=== PATIENT | male | born 1965 | race Caucasian/White ===

== ENCOUNTER 2019-03-27 14:09 | Inpatient (IN) | payer BC ==
[~2019-03-27] VITALS: Ht 181.6 cm; Wt 96.2 kg
[2019-03-27 14:21] VITALS: BP 168/102
--- NOTE | 2019-03-27 14:26 | NUR ---
PT AMB TO CHAIR UNTIL ER BED OPENS
--- NOTE | 2019-03-27 14:31 | NUR ---
PT AMB TO BED 2 WITH STEADY GAIT
--- NOTE | 2019-03-27 14:37 | NUR ---
C/O WEAKNESS, HEADACHES AND CP RADIATING TO THE L ARM AND L JAW 04/01 AND ACHING X 1 WEEK. PT REPORTS SEEING HIS PCP ON SATURDAY REGARDING THE SYMPTOMS AND WAS TOLD HIS EKG THAT WAS PERFORMED IN THE OFFICE WAS NORMAL. DENIES SOB, COUGH OR N/V. SKIN IS DRY/WARM/NFE. PT ALERT AND SPEAKING IN CLEAR/COMPLETE SENTENCES. BED IN LOW POSITION, SIDE RAIL UP X1. PT PLACED ON STUDENT LIFE COORDINATOR AT THIS TIME.
--- NOTE | 2019-03-27 14:38 | NUR ---
PT PLACED ON CLAIMS ADMINISTRATOR. LALIT EMT AT BEDSIDE FOR EKG
--- NOTE | 2019-03-27 14:41 | NUR ---
Dr. Barnhart evaluating patient at bedside.
[2019-03-27 15:05] LABS: BASOPHILS % (AUTO) 0.7 % (0.0-2.0); EOSINOPHILS # (AUTO) 0.1 K/uL (0-0.4); EOSINOPHILS % (AUTO) 1.9 % (0.0-4.0); HEMATOCRIT 43.1 % (36-52); HEMOGLOBIN 14.5 g/dL (12.0-18.0); LYMPHOCYTES # (AUTO) 1.9 K/uL (2.0-11.5); LYMPHOCYTES % (AUTO) 30.7 % (20.5-51.1); MEAN CORPUSCULAR HEMOGLOBIN 30 pg (27-31); MEAN CORPUSCULAR HGB CONC 34 g/dL (33-37); MEAN CORPUSCULAR VOLUME 88.3 fL (80-94); MONOCYTES # (AUTO) 0.4 K/uL (0.8-1.0); MONOCYTES % (AUTO) 6.1 % (1.7-9.3); NEUTROPHILS # (AUTO) 3.7 K/uL (1.8-7.7); NEUTROPHILS % (AUTO) 60.6 % (42.2-75.2); PLATELET COUNT (AUTO) 259 K/uL (140-450); RED BLOOD CELL COUNT(AUTO) 4.88 MIL/uL (4.20-6.10); WHITE BLOOD COUNT (AUTO) 6.1 K/uL (4.8-10.8)
[2019-03-27 15:14] LABS: ANION GAP 13.5 (8-16); CARBON DIOXIDE 28.2 mmol/L (21-32); POTASSIUM 3.7 mmol/L (3.5-5.1)
[2019-03-27] MEDS ORDERED: ASPIRIN 81 MG TAB.CHEW PO ONE (15:15)
[2019-03-27 15:22] LABS: ALBUMIN 3.8 g/dL (3.4-5.0); TOTAL BILIRUBIN 0.3 mg/dL (0.0-1.0)
[2019-03-27 15:38] LABS: PROTHROMBIN TIME 9.6 secs (10.8-13.4)
[2019-03-27] MEDS ORDERED: DOCUSATE SODIUM 100 MG GELCAP PO PRN (15:50)
[2019-03-27] MEDS ORDERED: ONDANSETRON 4 MG/2 ML VIAL IM/IVP PRN (15:50)
[2019-03-27] MEDS ORDERED: ACETAMINOPHEN 325 MG TAB PO PRN (15:50)
[2019-03-27] MEDS ORDERED: LORazepam 2 MG/ML VIAL IM/IVP PRN (15:50)
[2019-03-27] MEDS ORDERED: HYDROcodone/APAP 5/325 MG 1 TAB TAB PO PRN (15:50)
[2019-03-27] MEDS ORDERED: MORPHINE SULFATE 2 MG/ML SYR IVP PRN (15:50)
[2019-03-27 16:25] VITALS: BP 151/93
[2019-03-27 16:25] LABS: MAGNESIUM 1.9 mg/dL (1.8-2.4); PHOSPHORUS 4.5 mg/dL (2.5-4.9); THYROID STIMULATING HORMONE 2.4 uIU/mL (0.34-3.74)
--- NOTE | 2019-03-27 16:25 | NUR ---
RECEIVED PT FROM [facility] RAFAELA FLOWER, PT IS AWAKE AND ALERT AND AMBULATED TO THE BED, IV LINE ON THE LEFT AC G.18 ON SALINE LOCK,AOX4, VITAL SIGNS TAKEN AND BP IS 151/93, PULSE IS 77, TEMP. IS 97.7, O2 SATURATION IS 96% AND RESPIRATION IS EVEN. PT VERBALIZED A CHEST PAIN OF 5/10 ON THE LEFT SIDE. NO OTHER UNTOWARD SYMPTOM NOTED. WILL CONTINUE TO MONITOR PT.
--- NOTE | 2019-03-27 16:30 | NUR ---
MRSA SWAB DONE TO PT NOW AND SAMPLE SENT TO LAB.
--- NOTE | 2019-03-27 16:30 | NUR ---
Patient will be admitted to care of DR. GONZALEZ. Admited to TELEMETRY. Will go to room 120B. Belongings list completed. Report to DAJA SHEARER.
[2019-03-27] MEDS ORDERED: DEXTROSE 50% 50 ML SYR IVP PRN (16:45)
[2019-03-27] MEDS ORDERED: hydrALAZINE 20 MG/ML VIAL IVP PRN (16:45)
[2019-03-27] MEDS ORDERED: INSULIN LISPRO SLIDING SCALE 100 UNITS/ML VIAL SUBQ PRN (16:45)
[2019-03-27] MEDS ORDERED: NITROGLYCERIN 0.4 MG TAB SL PRN (16:45)
[2019-03-27] MEDS: NACL 0.9% 1,000 ML IV SCH (17:27)
--- NOTE | 2019-03-27 17:30 | NUR ---
PT WAS STARTED WITH NS AT 60NML/HR NOW, ULTRASOUND OF THE BILATERAL CAROTID BEING DONE TO PT NOW.
--- NOTE | 2019-03-27 18:32 | NUR ---
PT JUST FINISHED HIS DINNER NOW AND DENIES PAIN. WILL MONITOR PT.
--- NOTE | 2019-03-27 19:15 | NUR ---
ENDORSED PT TO DIVER HELPER NURSE FOR CONTINUITY OF CARE.
--- NOTE | 2019-03-27 19:15 | NUR ---
RECEIVED PATIENT AND REPORT FOR CONTINUITY OF CARE. PATIENT IS AWAKE, ALERT, ORIENTED, WITH FAMILY MEMBERS AT BEDSIDE. PATIENT IS ON ROOM AIR. IV SITE IS ON LEFT AC 18 GA WITH NORMAL SALINE RUNNING AT 60 ML/HR. PATIENT IS AMBULATORY, SKIN IS INTACT. PATIENT DENIES ANY PAIN AT THIS TIME. WILL MONITOR PATIENT THROUGHOUT SHIFT.
[2019-03-27 20:00] VITALS: BP 144/89
[2019-03-27] MEDS: BLOOD GLUCOSE MONITORING 1 DEV DEV FS SCH (21:00)
[2019-03-27] MEDS: METOPROLOL 25 MG TAB PO SCH (22:04)
[2019-03-27] MEDS: busPIRone 5 MG TAB PO SCH (22:04)
--- NOTE | 2019-03-27 22:04 | NUR ---
ADMINISTERED MEDICATIONS ORDERED. PATIENT REFUSED HEPARIN SUBQ. PATIENT TOLERATED MEDICATIONS WELL. WILL CONTINUE TO MONITOR PATIENT.
[2019-03-28] VITALS (7 sets, daily range): BP systolic 136–156; BP diastolic 72–94
--- NOTE | 2019-03-28 | NUR ---
VITAL SIGNS TAKEN AND CHARTED. PATIENT LYING DOWN, ASLEEP. PATIENT DENIES ANY PAIN AT THIS TIME. WILL CONTINUE TO MONITOR PATIENT.
--- NOTE | 2019-03-28 02:00 | NUR ---
MADE ROUNDS. PATIENT LYING DOWN, APPEARS TO BE ASLEEP WITH NO SIGNS OF DISTRESS. WILL CONTINUE TO MONITOR PATIENT.
--- NOTE | 2019-03-28 04:00 | NUR ---
VITAL SIGNS TAKEN AND CHARTED. PATIENT DENIES PAIN AT THIS TIME. INFORMED URINE SPECIMEN NEEDED. WILL CONTINUE TO MONITOR PATIENT.
[2019-03-28] MEDS: BLOOD GLUCOSE MONITORING 1 DEV DEV FS SCH ×4 (05:38→21:23)
--- NOTE | 2019-03-28 06:00 | NUR ---
TAKEN BLOOD SUGAR, AND CHARTED. RESULT IS 92, NO COVERAGE NEEDED.
--- NOTE | 2019-03-28 07:29 | NUR ---
RECEIVED BEDSIDE REPORT FROM DAJA MILIAN. PT STABLE, AWAKE, ALERT AND ORIENTED X4. NO SIGNS OF DISTRESS NOTED. DENIES PAIN OR SOB. NO REDNESS, SWELLING, OR INFLAMMATION NOTED ON IV SITE. CALL BROWN WITHIN REACH. BED IN LOWEST POSITION. SAFETY MEASURES IN PLACE. PLAN OF CARE REVIEWED.
--- NOTE | 2019-03-28 07:30 | NUR ---
ENDORSED PATIENT TO AM SHIFT NURSE FOR CONTINUITY OF CARE. PATIENT IS AWAKE, LYING DOWN IN BED, WATCHING TV. PATIENT IS IN STABLE CONDITION AT THIS TIME.
[2019-03-28] MEDS: NACL 0.9% 1,000 ML IV SCH ×2 (07:43→13:34)
--- NOTE | 2019-03-28 08:48 | NUR ---
URINE SAMPLE COLLECTED PER MD ORDER.
[2019-03-28 08:56] LABS: BASOPHILS % (AUTO) 0.6 % (0.0-2.0); EOSINOPHILS # (AUTO) 0.1 K/uL (0-0.4); EOSINOPHILS % (AUTO) 2.9 % (0.0-4.0); HEMATOCRIT 41.9 % (36-52); LYMPHOCYTES # (AUTO) 1.6 K/uL (2.0-11.5); LYMPHOCYTES % (AUTO) 31.7 % (20.5-51.1); MEAN CORPUSCULAR HEMOGLOBIN 30 pg (27-31); MEAN CORPUSCULAR HGB CONC 33 g/dL (33-37); MEAN CORPUSCULAR VOLUME 89.1 fL (80-94); MONOCYTES # (AUTO) 0.4 K/uL (0.8-1.0); MONOCYTES % (AUTO) 7.9 % (1.7-9.3); NEUTROPHILS # (AUTO) 2.8 K/uL (1.8-7.7); NEUTROPHILS % (AUTO) 56.9 % (42.2-75.2); PLATELET COUNT (AUTO) 246 K/uL (140-450); RED CELL DISTRIBUTION WIDTH 14.3 % (11.6-13.7); WHITE BLOOD COUNT (AUTO) 4.9 K/uL (4.8-10.8)
[2019-03-28] MEDS ORDERED: PANTOPRAZOLE 40 MG TABEC PO SCH (09:00)
[2019-03-28] MEDS ORDERED: LISINOPRIL 5 MG TAB PO SCH (09:00)
[2019-03-28 09:22] LABS: CHOL/HDL RATIO 4.6 (1-4.5); MAGNESIUM 2.1 mg/dL (1.8-2.4); PHOSPHORUS 3.3 mg/dL (2.5-4.9)
[2019-03-28] MEDS: ATORVASTATIN 20 MG TAB PO SCH (09:37)
[2019-03-28] MEDS: METOPROLOL 25 MG TAB PO SCH ×2 (09:37→21:24)
[2019-03-28] MEDS: ASPIRIN 81 MG TAB.CHEW PO SCH (09:37)
[2019-03-28 09:38] LABS: APPEARANCE,URINE CLEAR (CLEAR); BILIRUBIN,URINE NEGATIVE (NEGATIVE); BLOOD, URINE NEGATIVE (NEGATIVE); COLOR,URINE YELLOW (YELLOW); LEUKOCYTE ESTERASE ,URINE NEGATIVE (NEGATIVE); NITRITE, URINE NEGATIVE (NEGATIVE); UGLUCOSE TRACE (NEGATIVE)
[2019-03-28] MEDS: busPIRone 5 MG TAB PO SCH ×2 (09:38→21:24)
--- NOTE | 2019-03-28 09:41 | NUR ---
DR MEZA AT THE BEDSIDE. PT REFUSED SCHEDULED HEPARIN, PT IS AMBULATORY AND HAS SCDS ON. ADMINISTERED ALL OTHER SCHEDULED MEDICATIONS, PT TOLERATED WELL. NO OTHER NEEDS AT THIS TIME.
[2019-03-28 10:07] LABS: ANION GAP 13.5 (8-16); CARBON DIOXIDE 25.6 mmol/L (21-32); CREATININE 0.9 mg/dL (0.7-1.3); POTASSIUM 4.1 mmol/L (3.5-5.1)
--- NOTE | 2019-03-28 11:48 | NUR ---
VITAL SIGNS TAKEN, PT STABLE. BLOOD GLUCOSE CHECKED, 90, NO COVERAGE NEEDED. FAMILY AT THE BEDSIDE.
--- NOTE | 2019-03-28 13:20 | NUR ---
PT STABLE, RESTING IN BED. NO OTHER NEEDS AT THIS TIME.
--- NOTE | 2019-03-28 15:52 | NUR ---
VITAL SIGNS TAKEN, PT STABLE. NO OTHER NEEDS AT THIS TIME.
--- NOTE | 2019-03-28 16:30 | NUR ---
BLOOD GLUCOSE CHECKED, 84, NO COVERAGE NEEDED.
--- NOTE | 2019-03-28 18:45 | NUR ---
PT STABLE, DENIES PAIN OR SOB. AT THE BEDSIDE. NO OTHER NEEDS AT THIS TIME.
--- NOTE | 2019-03-28 19:25 | NUR ---
ENDORSED PT TO RN JASMINE FOR CONTINUITY OF CARE. PT STABLE.
--- NOTE | 2019-03-28 19:26 | NUR ---
RECEIVED PT IN STABLE CONDITION FROM PR NURSE. AWAKE,ALERT NAD ORIENTED X4. ON TEL MONITOR . WITH NO C/O ANY PAIN NO0R DISCOMFORT NOTED. FAMILY MEMBER AT BEDSIDE. HAS IVF INFUSING WELL IN THE LT AC G#18. CLEAR AND PATENT. PLAN OF CARE DISCUSSED AND VERBALIZED UNDERSTANDING. BED ON LOW POSITION. CALL LIGHT WITHIN EASY REACH. WILL CONTINUE TO MONITOR.
--- NOTE | 2019-03-28 19:50 | NUR ---
PT AMBULATED TO THE HALLWAY WITH FAMILY. NO CHEST PAIN NOTED.
--- NOTE | 2019-03-28 21:23 | NUR ---
BLOOD SUGAR WAS CHECKED RESULT 96. NO INSULIN NEEDED.
--- NOTE | 2019-03-28 23:50 | NUR ---
MADE ROUNDS. AWAKE , NO C/O ANY DISCOMFORT NOR PAIN NOTED. VITAL SIGNS STABLE.
--- NOTE | 2019-03-29 01:00 | NUR ---
MADE ROUNDS. PT ASLEEP. NO S/S OF ANY DISCOMFORT NOTED.
--- NOTE | 2019-03-29 03:00 | NUR ---
ASLEEP. NO S/S OF ANY PAIN . WILL CONTINUE TO MONITOR.
[2019-03-29 04:00] VITALS: BP 130/85
--- NOTE | 2019-03-29 06:00 | NUR ---
BLOOD SUGAR THIS AM WAS CHECKED RESULT 91. NO INSULIN NEEDED.
[2019-03-29] MEDS: BLOOD GLUCOSE MONITORING 1 DEV DEV FS SCH (06:01)
--- NOTE | 2019-03-29 06:10 | NUR ---
PATIENT HAS BEEN SCREENED AND CATEGORIZED MODERATE NUTRITION RISK. PATIENT WILL BE SEEN WITHIN 3-5 DAYS OF ADMISSION. 03/30/19-04/01/19 DOC BISHOP MS, RDN
--- NOTE | 2019-03-29 07:10 | NUR ---
ENDORSED PT IN STABLE CONDITION TO AM NURSE.
--- NOTE | 2019-03-29 07:38 | NUR ---
PATIENT WAS AWAKE, ALERT, SITTING IN BED COMFORTABLY. RESPIRATION EVEN, UNLABOR ON ROOM AIR. SKIN DRY AND WARM. IV PATENT AND INTACT. DENIED CHEST PAIN, SOB AT THIS TIME. PLAN OF CARE WAS DISCUSSED WITH PATIENT. BED AT LOW POSITION, SIDE RAILS UP. CALL LIGHT WITHIN REACH
[2019-03-29 08:00] VITALS: BP 127/85
[2019-03-29] MEDS ORDERED: ATOR10TA PO (08:06)
[2019-03-29] MEDS ORDERED: METO25TE2 PO (08:06)
[2019-03-29] MEDS ORDERED: LISI10TA11 PO (08:06)
[2019-03-29 08:16] LABS: BASOPHILS % (AUTO) 0.7 % (0.0-2.0); EOSINOPHILS # (AUTO) 0.1 K/uL (0-0.4); EOSINOPHILS % (AUTO) 2.7 % (0.0-4.0); HEMATOCRIT 43.9 % (36-52); HEMOGLOBIN 14.8 g/dL (12.0-18.0); LYMPHOCYTES # (AUTO) 1.6 K/uL (2.0-11.5); LYMPHOCYTES % (AUTO) 30.5 % (20.5-51.1); MEAN CORPUSCULAR HEMOGLOBIN 30 pg (27-31); MEAN CORPUSCULAR HGB CONC 34 g/dL (33-37); MEAN CORPUSCULAR VOLUME 88.3 fL (80-94); MONOCYTES # (AUTO) 0.3 K/uL (0.8-1.0); MONOCYTES % (AUTO) 5.8 % (1.7-9.3); NEUTROPHILS # (AUTO) 3.2 K/uL (1.8-7.7); NEUTROPHILS % (AUTO) 60.3 % (42.2-75.2); PLATELET COUNT (AUTO) 261 K/uL (140-450); RED BLOOD CELL COUNT(AUTO) 4.97 MIL/uL (4.20-6.10); RED CELL DISTRIBUTION WIDTH 14.1 % (11.6-13.7); WHITE BLOOD COUNT (AUTO) 5.2 K/uL (4.8-10.8)
[2019-03-29] MEDS: NACL 0.9% 1,000 ML IV SCH (08:30)
[2019-03-29] MEDS: ATORVASTATIN 20 MG TAB PO SCH (08:36)
[2019-03-29] MEDS: METOPROLOL 25 MG TAB PO SCH (08:36)
[2019-03-29] MEDS: busPIRone 5 MG TAB PO SCH (08:36)
[2019-03-29] MEDS: ASPIRIN 81 MG TAB.CHEW PO SCH (08:37)
[2019-03-29] MEDS ORDERED: LISINOPRIL 20 MG TAB PO SCH (09:00)
[2019-03-29 09:17] LABS: ANION GAP 15.2 (8-16); CARBON DIOXIDE 25.7 mmol/L (21-32); POTASSIUM 3.9 mmol/L (3.5-5.1)
[2019-03-29 09:18] LABS: MAGNESIUM 2.2 mg/dL (1.8-2.4); PHOSPHORUS 3.6 mg/dL (2.5-4.9)
--- NOTE | 2019-03-29 09:18 | NUR ---
DISCHARGE INSTRUCTION AND PRESCRIPTIONS WERE GIVEN AND EXPLAINED TO PATIENT. PATIENT VERBALIZED UNDERSTANDING. IV WAS REMOVED, CATHETER INTACT, NO ACTIVE BLEEDING SEEN. LIVESTOCK YARD SUPERVISOR WAS REMOVED. PATIENT REFUSED TO HAVE PNEUMO VACCINE AT THIS TIME.
--- NOTE | 2019-03-29 09:30 | NUR ---
PATIENT WAS ESCORTED OUT BY STAFF, AMBULATORY WITH STEADY GAIT. ALL BELONGINGS WERE TAKEN WITH THE PATIENT. ID BAND WAS REMOVED. PATIENT IS STABLE AT THIS TIME
== END 2019-03-29 09:30 | disposition home or self-care (01) | DRG 206 ==
LOC: MED 14:09 → MTU 15:55
PROVIDERS: ADMIT General Practice; ATTEND General Practice
DX: M94.0 Chondrocostal junction syndrome [Tietze] (principal); I24.9 Acute ischemic heart disease, unspecified; E11.9 Type 2 diabetes mellitus without complications; I16.0 Hypertensive urgency; F41.9 Anxiety disorder, unspecified; E66.3 Overweight; G98.8 Other disorders of nervous system; E78.5 Hyperlipidemia, unspecified; Z83.3 Family history of diabetes mellitus; Z84.1 Family history of disorders of kidney and ureter; Z68.29 Body mass index [BMI] 29.0-29.9, adult
CPT/HCPCS: 36415; 70450; 71045; 80048; 80053; 81003; 82948; 83036; 83690; 83735; 83880; 84100; 84443; 84484; 85025; 85610; 85730; 87081; 93005; 93880; 93925; 93970; 99285; J1644; J1815; J7030; Q0092